=== PATIENT | female | born 1995 | race Caucasian/White ===

== ENCOUNTER → 2018-01-24 | Outpatient (CLI) | payer BC ==
--- NOTE | 2018-01-24 15:34 | US ---
EXAMINATION TYPE: US abdomen complete DATE OF EXAM: 01/24/2018 COMPARISON: NONE CLINICAL HISTORY: R10.11 right upper quad, R10.31 right lower quad. Pt states right side ABD pain EXAM MEASUREMENTS: Liver Length: 15.8 cm Gallbladder Wall: 0.2 cm CBD: 0.3 cm Spleen: 9.4 cm Right Kidney: 11.1 x 4.3 x 5.2 cm Left Kidney: 11.4 x 5.5 x 6.0 cm Pancreas: wnl Liver: wnl Gallbladder: wnl Evidence for sonographic Dhillon's sign: No CBD: wnl Spleen: wnl Right Kidney: wnl Left Kidney: wnl, lower pole gassed out Upper IVC: wnl Abd Aorta: wnl IMPRESSION: 1. No acute ultrasound abnormality.
--- NOTE | 2018-01-24 16:00 | US ---
EXAMINATION TYPE: US pelvic complete DATE OF EXAM: 01/24/2018 COMPARISON: NONE CLINICAL HISTORY: R10.31 RIGHT LOWER QUAD. Pt states pelvic pain TECHNIQUE: Transabdominal (TA). Transabdominal sonographic images of the pelvis were acquired. Date of LMP: 12/28/2017 EXAM MEASUREMENTS: Uterus: 6.9 x 3.5 x 4.0 cm Endometrial Stripe: 0.6 cm Right Ovary: 3.0 x 2.2 x 2.3 cm Left Ovary: 2.8 x 2.4 x 2.8 cm Urinary bladder is sonolucent. Posterior wall is unremarkable. 1. Uterus: Retroverted wnl 2. Endometrium: wnl 3. Right Ovary: wnl 4. Left Ovary: wnl 5. Bilateral Adnexa: wnl 6. Posterior cul-de-sac: wnl No abnormality visualized IMPRESSION: 1. Normal pelvic ultrasound
== END | disposition home or self-care (01) ==
LOC: RADUSWWP 14:54
PROVIDERS: ATTEND Family Medicine
DX: R10.31 Right lower quadrant pain (principal); R10.11 Right upper quadrant pain
CPT/HCPCS: 76700; 76856